=== PATIENT | female | born 1970 ===

== ENCOUNTER 2024-01-22 04:15 | Day surgery (SDC) | payer OTHER ==
[2024-01-21 09:18] VITALS: BMI 29.8
[2024-01-22] MEDS ORDERED: ONDANSETRON 4 MG/2 ML VIAL IVPUSH PRN (07:55)
[2024-01-22] MEDS ORDERED: oxyCODONE HCL 5 MG TABLET PO PRN (07:55)
[2024-01-22] MEDS ORDERED: ACETAMINOPHEN 1000 MG/100 ML BAG IVPB PRN (07:55)
[2024-01-22] MEDS ORDERED: MIDAZOLAM HCL 2 MG/2 ML SINGLE DOSE VIAL ONE (10:04)
[2024-01-22] MEDS ORDERED: PROPOFOL 20 ML ONE (10:04)
[2024-01-22] MEDS ORDERED: ONDANSETRON 4 MG/2 ML VIAL ONE (10:05)
[2024-01-22] MEDS ORDERED: DEXAMETHASONE SOD PHOSPHATE 4 MG/1 ML VIAL ONE (10:05)
[2024-01-22] MEDS ORDERED: LIDOCAINE HCL/PF 2% SDV 5ML VIAL ONE (10:05)
[2024-01-22] MEDS ORDERED: KETOROLAC TROMETHAMINE 30 MG/1 ML VIAL ONE (10:05)
[2024-01-22] MEDS ORDERED: SEVOFLURANE 250 ML BTL ONE (10:06)
[2024-01-22] MEDS: LACTATED RINGERS SOLUTION 1,000 ML IV SCH (11:54)
[2024-01-22 12:22] VITALS: RESP 18
[2024-01-22 12:57] VITALS: BP 120/85; PULSE 85; TEMP 97.1
== END 2024-01-22 13:20 | disposition home or self-care (01) ==
LOC: JASU-SURG 04:15
PROVIDERS: ATTEND Obstetrics & Gynecology Obstetrics
PROC: 0UB98ZZ Excision of Uterus, Via Natural or Artificial Opening Endoscopic (ICD-10-PCS; principal; 2024-01-22 09:30)
DX: N84.0 Polyp of corpus uteri (principal)
CPT/HCPCS: 81025; 86850; 86900; 86901; 88305-TC; 94760